=== PATIENT | male | born 1960 | race Caucasian/White ===

== ENCOUNTER → 2017-07-10 | Outpatient (CLI) | payer MEDICARE, MEDICAID ==
--- NOTE | 2017-07-10 14:11 | RADIOLOGY REPORT (SQ) ---
EXAM DESCRIPTION: CT ABD/PELVIS WITH IV ORAL COMPLETED DATE/TIME: 07/10/2017 12:46 pm REASON FOR STUDY: ABDOMINAL PAIN, LLQ R10.32 LEFT LOWER QUADRANT PAIN R10.2 PELVIC AND PERINEAL PA IN COMPARISON: None. TECHNIQUE: CT scan of the abdomen and pelvis performed using helical scanning technique with dynamic intravenous contrast injection. Patient drank oral contrast. Images reviewed with lung, soft tissue , and bone windows. Reconstructed coronal and sagittal MPR images reviewed. Delayed images for evalua tion of the urinary system also acquired. All images stored on PACS. All CT scanners at this facility use dose modulation, iterative reconstruction, and/or weight based d osing when appropriate to reduce radiation dose to as low as reasonably achievable (ALARA). [facility]: Dose Right [facility]: CareDose [facility]: Dose Right [facility]: Teradose 4D [facility]: LDR Holding CONTRAST TYPE AND DOSE: contrast/concentration: Isovue 370.00 mg/ml; Total Contrast Delivered: 69.0 ml; Total Saline Delivered: 65.0 ml RENAL FUNCTION: Creatinine 0.6 RADIATION DOSE: CT Rad equipment meets quality standard of care and radiation dose reduction techniq ues were employed. CTDIvol: 3.8 - 4.4 mGy. DLP: 370 mGy-cm.. LIMITATIONS: None. FINDINGS: On axial images 47 through 59, there is distal descending colon wall thickening and mild l uminal narrowing which could be seen in diverticular inflammation. No abscess. No free air or free fluid. Patient drank oral contrast. No evidence of bowel obstruction. LOWER CHEST: No significant findings. No nodules or infiltrates. LIVER: Normal size. No masses. No dilated ducts. SPLEEN: Normal size. No focal lesions. PANCREAS: No masses. No significant calcifications. No adjacent inflammation or peripancreatic fluid collections. Pancreatic duct not dilated. GALLBLADDER: No identified stones by CT criteria. No inflammatory changes to suggest cholecystitis. ADRENAL GLANDS: No significant masses or asymmetry. RIGHT KIDNEY AND URETER: No solid masses. No significant calcifications. No hydronephrosis or hyd roureter. LEFT KIDNEY AND URETER: No solid masses. No significant calcifications. No hydronephrosis or hydr oureter. AORTA AND VESSELS: No aneurysm. No dissection. Renal arteries, SMA, celiac without stenosis. RETROPERITONEUM: No retroperitoneal adenopathy, hemorrhage or masses. BOWEL AND PERITONEAL CAVITY: As above. Question mild inflammatory change along the distal descending / proximal sigmoid colon. No free intraperitoneal air or fluid or CT signs of bowel obstruction. APPENDIX: Normal. PELVIS: No mass. No free fluid. Normal bladder. ABDOMINAL WALL: No masses. No hernias. BONES: No significant or acute findings. OTHER: No other significant finding. IMPRESSION: Question mild distal descending/ proximal sigmoid colon diverticular inflammation. No a bscess. No bowel obstruction TECHNICAL DOCUMENTATION: JOB ID: [id number] Quality ID # [id number]: Final reports with documentation of one or more dose reduction techniques (e.g., Au tomated exposure control, adjustment of the mA and/or kV according to patient size, use of iterative reconstruction technique) 2010 [email or web address]- All Rights Reserved Reading location - IP/workstation name: [email or web address]
== END ==
LOC: RAD 11:49
PROVIDERS: ATTEND Physician Assistant
DX: R10.32 Left lower quadrant pain (principal)
CPT/HCPCS: 74177; 82565

== ENCOUNTER 2019-12-17 16:12 | Emergency (ER) | payer MEDICARE, MEDICAID ==
--- NOTE | 2019-12-17 16:46 | ER Document Report ---
ED Medical Screen (RME) - General Chief Complaint: Syncope Stated Complaint: POSSIBLE SYNCOPE Time Seen by Provider: 12/17/19 16:39 Primary Care Provider: THOM KANG PA-C [Primary Care Provider] - Follow up as needed Mode of Arrival: Medic Information source: Patient Notes: 59-year-old male presented to ED for syncopal episode at a store. He states he donated plasma stop by the store while he was at the counter he started shaking real bad. He states he got mated out to the parking lot and then passed out. His blood pressure in the triage area was 84/68 pulse is 112. I have contacted the charge nurse and let her know these vital signs. Patient is alert and oriented respirations regular nonlabored speaking in full sentences. I have greeted and performed a rapid initial assessment of this patient. A comprehensive ED assessment and evaluation of the patient, analysis of test results and completion of medical decision making process will be conducted by an additional ED providers. TRAVEL OUTSIDE OF THE [place] IN LAST 30 DAYS: No - Related Data Allergies/Adverse Reactions: No Known Allergies Allergy (Verified 12/17/19 16:42) Physical Exam - Vital signs Vitals: Temp Pulse Resp BP Pulse Ox 99.3 F 110 H 18 96/58 L 97 12/17/19 16:42 12/17/19 16:42 12/17/19 16:42 12/17/19 16:42 12/17/19 16:42 Course - Vital Signs Vital signs: Temp Pulse Resp BP Pulse Ox 99.3 F 110 H 18 84/69 L 97 12/17/19 16:42 12/17/19 16:42 12/17/19 16:42 12/17/19 16:43 12/17/19 16:42 Doctor's Discharge - Discharge Referrals: THOM KANG PA-C [Primary Care Provider] - Follow up as needed
--- NOTE | 2019-12-17 17:16 | ER Document Report ---
ED Dizziness/Weakness - General Chief Complaint: Syncope Stated Complaint: POSSIBLE SYNCOPE Time Seen by Provider: 12/17/19 16:39 Primary Care Provider: THOM KANG PA-C [PHYSICIAN [facility]] - Follow up as needed Mode of Arrival: Medic Notes: 12/17/19 16:43 - ED Nursing Note by KENISHAVIRA Acct Num: [id number] : 1960 Patient Age: 59 Pt presents to the ED via EMS for c/o near-syncope. Pt reports donating plasma a few hours ago. Reports he was at a check out counter leaving a store and started to feel dizzy/lightheaded. Reports ambulating in the parking lot when he had syncopal episodes, states he was able to catch himself on his hands b efore falling to the ground, reports he black out for "a minute" but came right back to. Pt states he felt "woozy" and was unable to get up off the ground. EMS initiated PIV and administered 500ml LR bolus. Pt arrives in the ED A&Ox4, breaths e/u, NAD. Pt denies any pain or injury, states he just feels drained. Pt with noted tachycardia and BP 90s/50s in triage. ED Medical Screen (Terry notes) - General Chief Complaint: Syncope Stated Complaint: POSSIBLE SYNCOPE Time Seen by Provider: 12/17/19 16:39 Primary Care Provider: THOM KANG PA-C [Primary Care Provider] - Follow up as needed Mode of Arrival: Medic Information source: Patient Notes: 59-year-old male presented to ED for syncopal episode at a store. He states he donated plasma stop by the store while he was at the counter he started shaking real bad. He states he got mated out to the parking lot and then passed out. His blood pressure in the triage area was 84/68 pulse is 112. I have contacted the charge nurse and let her know these vital signs. Patient is alert and oriented respirations regular nonlabored speaking in full sentences. MY NOTES 59-year-old male who smokes 1 pack of cigarettes daily and drinks around 8-10 beers every other day advises he became quite fatigued and had a syncopal episode in the parking lot after donating plasma few hours prior. He is feeling dizzy at the checkout counter. Upon arrival patient was hypotensive and tachycardic. He denied any chest pain denied any fever chills cough or cold symptoms TRAVEL OUTSIDE OF THE [place] IN LAST 30 DAYS: No - HPI Onset: Just prior to arrival Onset/Duration: Sudden, Persistent Quality of pain: No pain Severity: Mild Pain Level: Denies Associated symptoms: Lightheaded, Vertigo, Weak all over Baseline gait: Walks w/o assistance - Related Data Allergies/Adverse Reactions: No Known Allergies Allergy (Verified 12/17/19 16:42) Past Medical History - General Information source: Patient - Social History Smoking Status: Current Every Day Smoker Cigarette use (# per day): Yes Chew tobacco use (# tins/day): No Smoking Education Provided: Yes Frequency of alcohol use: Occasional Drug Abuse: None Lives with: Family Family History: Reviewed & Not Pertinent Patient has suicidal ideation: No Patient has homicidal ideation: No Review of Systems - Review of Systems Constitutional: See HPI, Weakness EENT: No symptoms reported Cardiovascular: See HPI, Palpitations, Heart racing, Dyspnea Respiratory: No symptoms reported Gastrointestinal: No symptoms reported Genitourinary: No symptoms reported Male Genitourinary: No symptoms reported Musculoskeletal: No symptoms reported Skin: No symptoms reported Hematologic/Lymphatic: No symptoms reported Neurological/Psychological: See HPI, Weakness, Lost consciousness Physical Exam - Vital signs Vitals: Temp Pulse Resp BP Pulse Ox 99.3 F 110 H 18 96/58 L 97 12/17/19 16:42 12/17/19 16:42 12/17/19 16:42 12/17/19 16:42 12/17/19 16:42 Interpretation: Hypotensive, Tachycardic, Tachypneic - HEENT Head: Normocephalic, Atraumatic Eyes: Normal Pupils: PERRL Nasal: Normal Mouth/Lips: Normal Mucous membranes: Dry Pharynx: Normal Neck: Normal - Respiratory Respiratory status: No respiratory distress Chest status: Nontender Breath sounds: Normal Chest palpation: Normal - Cardiovascular Rhythm: Tachycardia Heart sounds: Normal auscultation Murmur: No - Abdominal Inspection: Normal Distension: No distension Bowel sounds: Normal Tenderness: Nontender Organomegaly: No organomegaly - Rectal Prostate: Other - deferred - Genitourinary Scrotum: Other - deferred - Back Back: Normal - Extremities General upper extremity: Normal inspection General lower extremity: Normal inspection - Neurological Neuro grossly intact: Yes Cognition: Normal Orientation: AAOx4 [place] Coma Scale Eye Opening: Spontaneous [place] Coma Scale Verbal: Oriented [place] Coma Scale Motor: Obeys Commands [place] Coma Scale Total: 15 Speech: Normal Motor strength normal: LUE, RUE, LLE, RLE Sensory: Normal - Psychological Associated symptoms: Normal affect - Skin Skin Temperature: Warm Skin Moisture: Dry Course - Vital Signs Vital signs: Temp Pulse Resp BP Pulse Ox 99.3 F 110 H 20 149/93 H 97 12/17/19 16:42 12/17/19 16:42 12/17/19 17:05 12/17/19 17:05 12/17/19 16:42 - Laboratory Result Diagrams: 12/17/19 17:09 12/17/19 17:09 Laboratory results interpreted by me: 12/17/19 12/17/19 17:09 17:09 Hgb 17.3 H MCV 103 H MCH 35.3 H RDW 14.2 H [place] % (Auto) 13.5 H Sodium 131.0 L Carbon Dioxide 21 L BUN 4 L Glucose 118 H Calcium 8.3 L Total Protein 5.8 L Albumin 3.2 L - Diagnostic Test Radiology reviewed: Reports reviewed - EKG Interpretation by Me EKG shows normal: Sinus rhythm Rate: Tachycardia Rhythm: NSR - [address] elevation no ST depression no T wave elevation no T wave depression axis within normal limits. Discharge - Discharge Clinical Impression: Atypical syncope, s/p plasma donation [employer], Tachycardia, Pernicious anemia Condition: Good Disposition: HOME, SELF-CARE Additional Instructions: Follow-up with personal doctor return to ER as needed take medicines as directed encourage fluids; try to take B vitamins on a daily basis to include B12 for your pernicious anemia. Your personal doctor may prescribe some sublingual B12 or needle injections of B12; you can also get under the tongue B12 from [facility] or [employer]. Referrals: THOM KANG PA-C [PHYSICIAN [facility]] - Follow up as needed
[2019-12-17] MEDS ORDERED: THIAMINE HCL 100 MG, FOLIC ACID 1 MG in NORMAL SALINE 250 ML IV ONE (17:19)
[2019-12-17 17:21] LABS: ABSOLUTE LYMPHOCYTES (AUTO) 1.7 10^3/uL (0.5-4.7); ABSOLUTE MONOCYTES (AUTO) 0.8 10^3/uL (0.1-1.4); ABSOLUTE NEUT (AUTO) 3.2 10^3/uL (1.7-8.2); BASOPHILS % (AUTO) 0.4 % (0-2); EOSINOPHILS % (AUTO) 0.4 % (0-6); HEMATOCRIT 50.5 % (37.9-51.0); HEMOGLOBIN 17.3 g/dL (13.5-17.0); MEAN CORPUSCULAR HEMOGLOBIN 35.3 pg (27.0-33.4); MEAN CORPUSCULAR HGB CONC 34.3 g/dL (32.0-36.0); MEAN CORPUSCULAR VOLUME 103 fl (80-97); MONOCYTES % (AUTO) 13.5 % (3-13); PLATELET COUNT 221 10^3/uL (150-450); RED CELL DISTRIBUTION WIDTH 14.2 % (11.5-14.0); SEGMENTED NEUTROPHILS % (AUTO) 55.7 % (42-78); TOTAL CELLS COUNTED % (AUTO) 100 %; WHITE BLOOD COUNT 5.8 10^3/uL (4.0-10.5)
[2019-12-17] MEDS: NORMAL SALINE 1000 ML 1,000 ML IV PRN ×2 (17:30→17:31)
[2019-12-17 17:38] LABS: ALBUMIN 3.2 g/dL (3.5-5.0); ALKALINE PHOSPHATASE 70 U/L (38-126); ANION GAP 10 (5-19); ASPARTATE AMINO TRANSFERASE 58 U/L (17-59); BILIRUBIN,DIRECT 0.3 mg/dL (0.0-0.4); BILIRUBIN,TOTAL 0.9 mg/dL (0.2-1.3); BLOOD UREA NITROGEN 4 mg/dL (7-20); CALCIUM 8.3 mg/dL (8.4-10.2); CARBON DIOXIDE 21 mmol/L (22-30); CHLORIDE 100 mmol/L (98-107); CREATINE KINASE 65 U/L (55-170); GLUCOSE 118 mg/dL (75-110); POTASSIUM 4.3 mmol/L (3.6-5.0); TOTAL PROTEIN 5.8 g/dL (6.3-8.2)
[2019-12-17 17:49] LABS: CREATINE KINASE MB 0.37 ng/mL (<4.55); TROPONIN I < 0.012 ng/mL
[2019-12-17] MEDS ORDERED: CYANOCOBALAMIN (VITAMIN B-12) INJ 1000 MCG/1 ML VIAL IM ONE (19:12)
[2019-12-17 19:28] LABS: APPEARANCE,URINE CLEAR; BILIRUBIN,URINE NEGATIVE (NEGATIVE); COLOR,URINE YELLOW; GLUCOSE, URINE NEGATIVE (NEGATIVE); KETONES,URINE TRACE mg/dL (NEGATIVE); LEUKOCYTE ESTERASE,URINE NEGATIVE (NEGATIVE); NITRITE,URINE NEGATIVE (NEGATIVE); PROTEIN,URINE NEGATIVE (NEGATIVE); URINE SPECIFIC GRAVITY 1.004; UROBILINOGEN,URINE NEGATIVE mg/dL (<2.0)
--- NOTE | 2019-12-17 20:27 | EKG REPORT ---
SEVERITY:- ABNORMAL ECG - SINUS RHYTHM ABNRM R PROG, CONSIDER ASMI OR LEAD PLACEMENT BORDERLINE PROLONGED QT INTERVAL : Confirmed by: Raj Riddle MD 17-Dec-2019 20:26:45
[2019-12-17 21:20] VITALS: BP 138/85
== END 2019-12-17 21:27 | disposition home or self-care (01) ==
LOC: ER 16:12
DX: R55 Syncope and collapse (principal); R00.0 Tachycardia, unspecified; D51.0 Vitamin B12 deficiency anemia due to intrinsic factor deficiency; R42 Dizziness and giddiness
CPT/HCPCS: 93005; 99284; 96372; 96361; 96365; 36415; 82553; 82962; 82550; 85025; 80053; 81001; 84484; 93010; J3420; J3490; J3411; J7030; J7050